=== PATIENT | male | born 1950 | race Caucasian/White ===

== ENCOUNTER 2020-08-26 11:15 | Emergency (ER) | payer MEDICARE, OTHER, SELFPAY ==
--- NOTE | ~2020-08-26 | XR_ITS ---
EXAMINATION: XR CHEST CLINICAL INFORMATION: Chest pain COMPARISON: February 17, 2018 TECHNIQUE: Frontal view of the chest was obtained. FINDINGS: There is no evidence of acute parenchymal disease, pneumothorax or pleural effusion. Heart normal size. No evidence of pulmonary edema. Endothoracic fat deposition seen bilaterally. XR/XR chest 1V IMPRESSION: No acute disease
[2020-08-26 11:21] VITALS: BP 170/77; PULSE 58; RESP 18; TEMP 37.1; O2SAT 97; BMI 39.1
--- NOTE | 2020-08-26 11:26 | ECG_ITS ---
Test Reason : CHEST PAIN Blood Pressure : / mmHG Vent. Rate : 050 BPM Atrial Rate : 050 BPM P-R Int : 166 ms QRS Dur : 092 ms QT Int : 450 ms P-R-T Axes : 039 058 072 degrees QTc Int : 410 ms Sinus bradycardia Otherwise normal ECG When compared with ECG of 28-JUN-2011 12:58, Premature ventricular complexes are no longer Present Vent. rate has decreased BY 56 BPM Nonspecific T wave abnormality no longer evident in Inferior leads Referred By: Generic ED Physician Electronically Signed By:RICHARD ESTEVES MD
[2020-08-26 13:33] LABS: MANUAL DIFF FLAG NO
[2020-08-26 13:35] LABS: Basophils Percent Auto 0.3 % (0-2); Eosinophils Absolute Auto 0.2 X10*3/uL (0.0-0.4); Hematocrit 42.4 % (42-52); Hemoglobin 14.9 g/dl (14.0-18.0); Imm Gran Abs Auto 0.03 X10*3/uL (0.00-0.03); Imm Gran Pct Auto 0.4 % (0.0-0.4); Lymphocytes Absolute Auto 2.2 X10*3/uL (1.2-4.9); Lymphocytes Percent Auto 29.6 % (20-40); Mean Corpuscular HGB Conc 35.1 g/dl (31.0-36.0); Mean Corpuscular Hemoglobin 30.9 pg (27.0-33.0); Mean Platelet Volume 9.3 fL (9.4-12.4); Monocytes Absolute Auto 0.5 X10*3/uL (0.1-1.2); Monocytes Percent Auto 6.9 % (2-11); Neutrophils Absolute Auto 4.5 X10*3/uL (2.0-8.3); Neutrophils Percent Auto 60.8 % (45-73); Platelet Count 188 X10*3/uL (160-400); Red Blood Count 4.82 X10*6/uL (4.60-5.80); Red Cell Distribution Width 12.9 % (11.0-16.0); White Blood Count 7.4 X10*3/uL (4.8-10.8)
[2020-08-26 14:10] LABS: Anion Gap 12 (12-20); Blood Urea Nitrogen 17 mg/dL (9-16); Calcium 9.5 mg/dL (8.4-10.2); Carbon Dioxide 29 mmol/L (22-29); Chloride 104 mmol/L (96-108); Creatinine Clr Calc Pharmacy 99.6; Estimated Glomerular Filt Rate > 60; Glucose Random 91 mg/dL (60-115); Potassium 3.7 mmol/L (3.3-5.1); Sodium 141 mmol/L (135-145)
[2020-08-26 14:15] LABS: Troponin-I High Sensitivity 5.2 ng/L (<3.5-35.0)
[2020-08-26 16:10] VITALS: BP 186/86; PULSE 55; RESP 20; O2SAT 98
--- NOTE | 2020-08-26 16:13 | ED_ITS ---
HPI - Chest Pain General Chief Complaint: Chest Pain Stated Complaint: chest pain Time Seen by Provider: 08/26/20 16:13 Source: patient Mode of arrival: ambulatory Limitations: no limitations History of Present Illness HPI narrative: Patient complaining of chest tightness and shortness of breath for last few weeks has increasing last 2 days no radiation of pain no nausea no vomiting no leg swelling. Patient did have same kind of pain 3 months ago seen primary care doctor started on Protonix got better not taking any medicine at this time has not seen any consulting group analyst. Patient had a stress test few 5 years ago which was negative patient does have history of sleep apnea and hypertension in taking his medication Related Data Previous Rx's Medication Instructions Recorded amoxicillin-pot clavulanate 1 tab PO BID #20 tab 08/26/20 [Augmentin] pantoprazole [Protonix] 40 mg PO DAILY #30 tab 08/26/20 Allergies Allergy/AdvReac Type Severity Reaction Status Date / Time cat dander [CAT] Allergy Unknown UNKNOWN Verified 08/26/20 11:20 dog dander [DOG] Allergy Unknown UNKNOWN Verified 08/26/20 11:20 Horse/Equine Containing Allergy Unknown RASH Verified 08/26/20 11:20 Products [HORSE/EQUINE PRODUCT DERIVATIVES] Review of Systems Review of Systems: Constitutional : No Weight loss, No Fever, No Chills ENT/Mouth : No sore throat, No Rhinorrhea Eyes: No Eye Pain, No Swelling Cardiovascular : + Chest Pain, no palpitations Respiratory : No Cough, No Sputum, ++ shortness of breath Gastrointestinal : no Nausea, No Vomiting, No Diarrhea, No abdominal Pain, no black stools Genitourinary : No Dysuria, No Urinary Frequency Musculoskeletal : No joint pain, No Myalgias, No Joint Swelling Skin : No Skin Lesions, No rash Neuro : No Weakness, No Numbness, No Dizziness, No Headache Psych : No Anxiety/Panic, No Depression Heme/Lymph: No Bruising, No Lymphadenopathy Endocrine : No Polyuria, No Polydipsia All other systems reviewed and are negative [facility] Past Medical History Medical History Bronchitis Hypertension Pneumonia Surgical History H/O knee surgery History of surgery of head Social History Social History Patient Tobacco Use Status: Current everyday Tobacco user Use of substances other than those prescribed or required for medical reasons: No Advance Directives: No Advance Directives Information Provided: No Physical Exam Vital Signs: Vital Signs: Last Vital Signs Temp 98.8 F 08/26/20 11:21 Pulse 55 08/26/20 16:10 Resp 20 08/26/20 16:10 BP 186/86 H 08/26/20 16:10 Pulse Ox 98 08/26/20 16:10 Body Mass Index 39.1 Appearance: Alert. Oriented X3. No acute distress. Eyes: PERRLA, No Nystagmus ENT: Pharynx normal. Oral Mucosa moist Neck: Normal inspection. Neck supple. CVS: Normal heart rate and rhythm. Pulses normal. Respiratory: No respiratory distress. Equal air entry bilateral, no wheezing/rales/rhonchi Abdomen: Soft and nontender. Bowel sounds are present, no mass palpable, no CVA tenderness Skin: Skin warm and dry. Normal skin color. Normal skin turgor. Extremities: No lower extremity edema. No calf tenderness Neuro: Oriented X 3. No motor deficit. No sensory deficit.No cerebellar signs , cranial nerves II-XII intact MDM - Chest Pain MDM Narrative Medical decision making narrative: patient with chest pain for more than 48 hours duration 2 sets of high sensitive troponin without any significant delta change patient has history of GERD and sleep apnea and had similar pain 3 months ago when he started on Protonix and got better patient advised take baby aspirin daily started on Protonix and follow with consulting group analyst / PCP within 1 month Lab Data Attestation: I reviewed the patient's lab results. Result diagrams: 08/26/20 13:28 08/26/20 13:28 Labs: Lab Results 08/26/20 08/26/20 08/26/20 Range/Units 13:28 13:28 13:28 WBC 7.4 (4.8-10.8) X10*3/uL RBC 4.82 (4.60-5.80) X10*6/uL Hgb 14.9 (14.0-18.0) g/dl Hct 42.4 (42-52) % MCV 88.0 (80-98) fL MCH 30.9 (27.0-33.0) pg MCHC 35.1 (31.0-36.0) g/dl RDW 12.9 (11.0-16.0) % Plt Count 188 (160-400) X10*3/uL MPV 9.3 L (9.4-12.4) fL Immature Gran % (Auto) 0.4 (0.0-0.4) % Neut % (Auto) 60.8 (45-73) % Lymph % (Auto) 29.6 (20-40) % [place] % (Auto) 6.9 (2-11) % Eos % (Auto) 2.0 (0-4) % Baso % (Auto) 0.3 (0-2) % Lymph # (Auto) 2.2 (1.2-4.9) X10*3/uL [place] # (Auto) 0.5 (0.1-1.2) X10*3/uL Eos # (Auto) 0.2 (0.0-0.4) X10*3/uL Baso # (Auto) 0.0 (0.0-0.2) X10*3/uL Abs Immat Gran (auto) 0.03 (0.00-0.03) X10*3/uL Absolute Neuts (auto) 4.5 (2.0-8.3) X10*3/uL Absolute Nucleated RBC 0.000 (0.0-0.012) X10*3/uL Nucleated RBC % (auto) 0.0 (0.0-0.2) /100WBC D-Dimer NG/ML Sodium 141 (135-145) mmol/L Potassium 3.7 (3.3-5.1) mmol/L Chloride 104 (96-108) mmol/L Carbon Dioxide 29 (22-29) mmol/L Anion Gap 12 (12-20) BUN 17 H (9-16) mg/dL Creatinine 0.87 (0.5-1.4) mg/dL Estim Creat Clear Calc 99.6 Estimated GFR > 60 Random Glucose 91 (60-115) mg/dL Calcium 9.5 (8.4-10.2) mg/dL Troponin I High Sens 5.2 (<3.5-35.0) ng/L B-Natriuretic Peptide 55 (<100) pg/mL 08/26/20 08/26/20 Range/Units 16:45 16:45 WBC (4.8-10.8) X10*3/uL RBC (4.60-5.80) X10*6/uL Hgb (14.0-18.0) g/dl Hct (42-52) % MCV (80-98) fL MCH (27.0-33.0) pg MCHC (31.0-36.0) g/dl RDW (11.0-16.0) % Plt Count (160-400) X10*3/uL MPV (9.4-12.4) fL Immature Gran % (Auto) (0.0-0.4) % Neut % (Auto) (45-73) % Lymph % (Auto) (20-40) % [place] % (Auto) (2-11) % Eos % (Auto) (0-4) % Baso % (Auto) (0-2) % Lymph # (Auto) (1.2-4.9) X10*3/uL [place] # (Auto) (0.1-1.2) X10*3/uL Eos # (Auto) (0.0-0.4) X10*3/uL Baso # (Auto) (0.0-0.2) X10*3/uL Abs Immat Gran (auto) (0.00-0.03) X10*3/uL Absolute Neuts (auto) (2.0-8.3) X10*3/uL Absolute Nucleated RBC (0.0-0.012) X10*3/uL Nucleated RBC % (auto) (0.0-0.2) /100WBC D-Dimer < 200 NG/ML Sodium (135-145) mmol/L Potassium (3.3-5.1) mmol/L Chloride (96-108) mmol/L Carbon Dioxide (22-29) mmol/L Anion Gap (12-20) BUN (9-16) mg/dL Creatinine (0.5-1.4) mg/dL Estim Creat Clear Calc Estimated GFR Random Glucose (60-115) mg/dL Calcium (8.4-10.2) mg/dL Troponin I High Sens 4.9 (<3.5-35.0) ng/L B-Natriuretic Peptide (<100) pg/mL ECG Data ECG #1: Attestation: I personally reviewed and interpreted this ECG as follows: Interpretation: sinus bradycardia with heart rate 50 beats per minute normal intervals normal axis no acute ST T wave changes no acute ischemia Discharge Plan Discharge Clinical Impression: Chronic GERD Chest pain Qualifiers: Chest pain type: precordial pain Qualified Code(s): R07.2 - Precordial pain Chronic bronchitis Qualifiers: Chronic bronchitis type: mucopurulent Qualified Code(s): J41.1 - Mucopurulent chronic bronchitis Patient Disposition: Home, Self-Care Instructions: Chest Pain (ED), Chronic Bronchitis (ED), Gastroesophageal Reflux Disease (ED) Additional Instructions: take antibiotics for chronic bronchitis. Start taking Protonix for acid reflux. Follow-up with your PCP /consulting group analyst for further evaluation including stress test for chest pain. Report to the ER if recurrence of chest pain Take baby aspirin daily Prescriptions: New pantoprazole [Protonix] 40 mg tablet,delayed release (DR/EC) 40 mg PO DAILY Qty: 30 RF: 0 amoxicillin-pot clavulanate [Augmentin] 875-125 mg tablet 1 tab PO BID Qty: 20 RF: 0
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
[2020-08-26 16:56] LABS: B Type Natriuretic Peptide 55 pg/mL (<100)
[2020-08-26] MEDS: Aspirin Enteric Coated 81 MG TABLET.DR 162 MG PO (16:56)
[2020-08-26 17:24] LABS: D Dimer < 200 NG/ML
[2020-08-26 17:33] LABS: Troponin-I High Sensitivity 4.9 ng/L (<3.5-35.0)
[2020-08-26] MEDS: Amoxicillin/Potassium Clav 875 MG TABLET PO (18:51)
[2020-08-26 18:57] VITALS: BP 185/80; PULSE 55; RESP 16; O2SAT 99
== END 2020-08-26 19:07 | disposition home or self-care (01) ==
PROVIDERS: Emergency Provider Internal Medicine; PCP Internal Medicine
DX: J41.1 Mucopurulent chronic bronchitis (principal); K21.9 Gastro-esophageal reflux disease without esophagitis; R07.2 Precordial pain; R06.02 Shortness of breath; I10 Essential (primary) hypertension
CPT/HCPCS: 36415; 71045; 80048; 83880; 84484; 85025; 85379; 93005; 99285

== ENCOUNTER 2020-12-26 13:52 | Emergency (ER) | payer MEDICARE, OTHER, SELFPAY ==
--- NOTE | 2020-12-26 | ECG_ITS ---
Test Reason : NEURO SYMPTOMS Blood Pressure : / mmHG Vent. Rate : 066 BPM Atrial Rate : 066 BPM P-R Int : 156 ms QRS Dur : 096 ms QT Int : 398 ms P-R-T Axes : 069 058 054 degrees QTc Int : 417 ms Normal sinus rhythm Normal ECG Heart rate has increased Referred By: Generic ED Physician Electronically Signed By:MANISH DEXTER MD
[2020-12-26 13:54] VITALS: PULSE 73; RESP 18; TEMP 36.8; O2SAT 97; BMI 36.9
--- NOTE | 2020-12-26 15:12 | ED.NEUROSD ---
HPI - Neuro Symptoms/Deficit General Chief Complaint: Neuro Symptoms/Deficit Stated Complaint: facial droop & numbness of the lt side Time Seen by Provider: 12/26/20 14:43 Source: patient Mode of arrival: ambulatory Limitations: no limitations History of Present Illness HPI Narrative: Patient comes emergency room complaining of droopy mouth and droopy eyelid/facial paralysis for 2 days. Patient denies any numbness tingling or loss of strength in upper lower extremities. Patient states that 4 weeks ago patient had his COVID booster shot, a week later he developed URI symptoms. He has been having a viral syndrome for the last 3 to patient denies fever chills. Related Data Previous Rx's Medication Instructions Recorded amoxicillin 875 mg-potassium 1 tab PO BID #20 tab 08/26/20 clavulanate 125 mg tablet (Augmentin) pantoprazole 40 mg tablet,delayed 40 mg PO DAILY #30 tab 08/26/20 release (Protonix) prednisone 10 mg tablet 10 mg PO DAILY #50 tab 12/26/20 valacyclovir 1 gram tablet 1,000 mg PO TID 7 Days #21 tab 12/26/20 Allergies Allergy/AdvReac Type Severity Reaction Status Date / Time cat dander [CAT] Allergy Unknown UNKNOWN Verified 12/26/20 13:53 dog dander [DOG] Allergy Unknown UNKNOWN Verified 12/26/20 13:53 Horse/Equine Containing Allergy Unknown RASH Verified 12/26/20 13:53 Products [HORSE/EQUINE PRODUCT DERIVATIVES] Review of Systems Review of Systems: Constitutional : No Weight loss, No Fever, No Chills, No Night Sweats, No Fatigue, No Malaise ENT/Mouth : No Hearing loss, No Ear Pain, No Nasal Congestion, No Sinus Pain, No Hoarseness, No sore throat, No Rhinorrhea, No Swallowing Difficulty Eyes: No Eye Pain, No Swelling, No Redness, No Foreign Body, No Discharge, No Vision Changes Cardiovascular : No Chest Pain, No SOB, No Dyspnea on Exertion, No Orthopnea, No Edema, No Palpitations Respiratory : No Cough, No Sputum, No Wheezing, No Smoke Exposure, No Dyspnea Gastrointestinal : No Nausea, No Vomiting, No Diarrhea, No Constipation, No abdominal Pain, No Hematochezia, No Melena Genitourinary : no irregular bleeding, No Dysuria, No Urinary Frequency, No Hematuria, No Urinary Incontinence, No Urgency, No Flank Pain, No Urinary Flow Changes, No Hesitancy Musculoskeletal : No joint pain, No Myalgias, No Joint Swelling Skin : No Skin Lesions, No rash Neuro : No Weakness, No Numbness, No Paresthesias, No Loss of Consciousness, No Dizziness, No Headache, unable to raise the eyebrow, unable to fully close left eye, complaining of tripping mouth on the left Psych : No Anxiety/Panic, No Depression, No SI/HI/AH/VH, No Social Issues, Heme/Lymph: No Bruising, No Bleeding,No Lymphadenopathy Endocrine : No Polyuria, No Polydipsia, No Temperature Intolerance PMFSH Past Medical History Medical History Bronchitis Hypertension Pneumonia Surgical History H/O knee surgery History of surgery of head Social History Social History Patient Tobacco Use Status: Current everyday Tobacco user Advance Directives: No Physical Exam Vital Signs: Vital Signs: Last Vital Signs Temp 98.3 F 12/26/20 13:54 Pulse 73 12/26/20 13:54 Resp 18 12/26/20 13:54 Pulse Ox 97 12/26/20 13:54 Body Mass Index 36.9 Const: Other: Appearance: Alert. Oriented X3. No acute distress. Eyes: Pupils equal, round and reactive to light. Patient unable to fully close his left eyelid ENT: Pharynx normal. Mouth droop on the left side of the lips, unable to puff cheeks, unable to raise left eyebrow Neck: Normal inspection. Neck supple. No lymph nodes noted. No crepitus, chronic 4 cm x 4 cm lump on the base of the right side of the neck above the clavicle CVS: Normal heart rate and rhythm. Pulses normal. Normal S1 and S2 Respiratory: No respiratory distress. Breath sounds normal. No Wheezing. No rales Abdomen: Soft and nontender. No rigidity. No distention. good BS x4 Skin: Skin warm and dry. Normal skin color. Normal skin turgor. Extremities: No lower extremity edema. No lower extremity edema. No Lacerations. No Rash Neuro: Oriented X 3. No motor deficit. No sensory deficit. Moving all extermities. No slurred speech. 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 Patient was given the 1st dose of valacyclovir and prednisone in the emergency room. I discussed with the patient that eventuality he may need physical therapy to regain the muscle strength in his face. Patient will follow-up with his PCP. 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 If you have any worsening or new symptoms, please return to the emergency room or call 911 Prescriptions: New valacyclovir 1 gram tablet 1,000 mg PO TID 7 Days Qty: 21 RF: 0 prednisone 10 mg tablet 10 mg PO DAILY Qty: 50 RF: 0 No Action pantoprazole [Protonix] 40 mg tablet,delayed release (DR/EC) 40 mg PO DAILY Qty: 30 RF: 0 amoxicillin-pot clavulanate [Augmentin] 875-125 mg tablet 1 tab PO BID Qty: 20 RF: 0
[2020-12-26] MEDS: predniSONE 20 MG TABLET 60 MG PO (15:34)
== END 2020-12-26 15:37 | disposition home or self-care (01) ==
PROVIDERS: Emergency Provider Emergency Medicine; PCP Internal Medicine
DX: G51.0 Bell's palsy (principal); I10 Essential (primary) hypertension
CPT/HCPCS: 93005; 99283

== ENCOUNTER 2022-03-19 10:46 | Outpatient (REF) | payer MEDICARE, OTHER, SELFPAY ==
--- NOTE | 2022-03-19 | PFT_ITS ---
Forced vital capacity is 59%, FEV1 of 61%, FEV1/FVC ratio is 76. [id number] of 66% and MVV is 46%. Bronchodilator challenge, no response was noted. Total lung capacity 71%. Residual volume 96%. Diffusion capacity 64%. CONCLUSION: Mild restrictive pulmonary disorder. No significant obstructive airway disorder was noted. No response to bronchodilator therapy. Clinical correlation is recommended. MD RAMANDEEP Richards/MODL / [id number]
== END 2022-03-19 10:47 | disposition home or self-care (01) ==
LOC: HO.RESP 10:46
PROVIDERS: PCP Internal Medicine; Visit Provider Internal Medicine
DX: R06.09 Other forms of dyspnea (principal)
CPT/HCPCS: 94060; 94727; 94729

== ENCOUNTER → 2022-04-09 10:50 | Outpatient (BNVA) | payer MEDICARE, OTHER, SELFPAY | PROVIDERS: PCP Internal Medicine; Visit Provider Internal Medicine Pulmonary Disease | DX: Z01.811 Encounter for preprocedural respiratory examination (principal); R94.2 Abnormal results of pulmonary function studies; R06.09 Other forms of dyspnea; G47.33 Obstructive sleep apnea (adult) (pediatric) | CPT/HCPCS: 99202 ==

== ENCOUNTER → 2022-07-02 10:42 | Outpatient (REF) | payer MEDICARE, OTHER, SELFPAY ==
--- NOTE | ~2022-07-02 | CT_ITS ---
EXAMINATION: CT CHEST WITHOUT CONTRAST CLINICAL INFORMATION: Abnormal result of pulmonary function tests. COMPARISON: Chest CT 03/18/2009. TECHNIQUE: Multidetector volumetric CT imaging of the chest was done. Axial MIP volume rendering provided. Sagittal and coronal reformatted images were obtained. This CT examination was performed using dose optimization techniques as appropriate, variously including the following: *Automated exposure control *Adjustment of mA and/or kV according to patient size (this includes techniques or standardized protocols for targeted exams where dose is matched to indication/reason for exam; i.e. extremities or head) *Use of iterative reconstruction technique DLP: 409 mGy-cm FINDINGS: LUNGS: Mild bronchial wall thickening consistent with chronic airways disease. No tree-in-bud airspace disease or groundglass disease to suggest acute abnormality. Minor subsegmental atelectasis or scarring in the left lower lobe. Scattered pulmonary micronodules one of which is calcified consistent with a granuloma and a few are juxtapleural consistent with parenchymal lymph nodes. MEDIASTINUM: 1.9 cm inferior left thyroid nodule is new from the prior thyroid ultrasound. No mediastinal adenopathy. No aortic aneurysm. No pericardial effusion. The main pulmonary artery is dilated measuring 3.6 cm. CORONARY ARTERY CALCIFICATION: Present. Minimal RCA and LAD calcium. PLEURA: There is no pleural effusion. No pleural mass or thickening. AXILLA: No lymphadenopathy. UPPER ABDOMEN: Fatty liver. Small lipid rich adenoma versus myelolipoma in the left adrenal gland. No follow-up imaging is recommended. OSSEOUS STRUCTURES: Degenerative changes in the spine. CT/CT chest wo IV con IMPRESSION: Minimal LAD and RCA coronary calcium. Bronchial wall thickening consistent with chronic airways disease. No emphysema or evidence of interstitial lung disease. Tiny scattered pulmonary micronodules as above are consistent with benign granulomas and parenchymal lymph nodes. Newly apparent 1.9 cm nodule in the inferior left thyroid. Based on the recommendations of the ACR Incidental Thyroid Findings Committee (JACR 2015 Apr; 12(2):143-50), further evaluation by thyroid ultrasound is recommended for solitary incidental thyroid nodules greater than or equal to 1.5 cm in largest axial dimension in patients age 35 years and older who do not have limited life expectancy or significant morbidities, unless clinically warranted. Fatty liver. Fleischner guidelines were followed.
--- NOTE | 2022-07-02 10:44 | CA_ITS ---
Transthoracic Echocardiogram Patient (Last, First, Middle): Duane Sims A Gender: Male Date of : 1950 Age: 72 Procedure Date: 07/02/2022 Procedure Type: Transthoracic Echocardiogram Location: OP Height: 175.26 cm Weight: 122.47 kg BSA: 2.35 m2 Heart Rate: bpm BP: 140 / 78 mmHg Social Work Associate: FRANKI Referring MD: Kai Prasad MD Sound Effects Person: Constantino Curran MD Symptoms: R06.09 - Other forms of dyspnea Study Quality: Fair ECG Rhythm: Sinus Conclusions: - 1. Normal LV systolic function with moderate LVH with impaired relaxation filling pattern 2. Normal cardiac valvular Doppler 3. Normal measured RV systolic pressure 4. No gross pericardial effusion Findings Procedure Information Contrast agent, definity, is being given per protocol without apparent complications. Left Ventricle Normal left ventricular size and systolic function. There is moderately increased left ventricular wall thickness. The visually estimated ejection fraction is between 55-60%. Spectral Doppler is indicative of an impaired relaxation filling pattern. E/E prime ratio is <8, consistent with normal filling pressures. Evidence suggests grade I (mild) diastolic dysfunction. Right Ventricle The right ventricle was not well visualized. There is normal right ventricular systolic function. Atria The left atrium was not well visualized. Interatrial shunt cannot be excluded. The right atrium was not well visualized. Aortic Valve The aortic valve was not well visualized. There is no aortic valve stenosis. There is no aortic valve regurgitation. Mitral Valve The mitral valve was not well visualized. There is trace mitral valve regurgitation. There is no mitral valve stenosis. Pulmonic Valve The pulmonic valve was not well visualized. Tricuspid Valve The tricuspid valve was not well visualized. There is trace tricuspid valve regurgitation. The right ventricular systolic pressure is normal. The right ventricular systolic pressure is 11 mmHg. There is no evidence of pulmonary hypertension. Great Vessels All visible segments of the aorta are normal in size. The pulmonary artery was not well visualized. Venous The inferior vena cava is normal in size and collapses greater than 50% with inspiration. Pericardium/Pleural There is no evidence of pericardial effusion. Prior Study Comparison no previous study in the last 5 years for comparison Measurements 2D Linear Measurements IVSd: 1.46 0.6-0.9/0.6-1.0 cm LVIDd: 4.91 3.9-5.3/4.2-5.9 cm LVIDd Index: 2.09 2.4-3.2/2.2-3.1 cm/m2 LVIDs: 3.31 2.0-3.6 cm LVPWd: 1.42 0.7-1.1 cm LA Diam: 4.60 2.7-3.8/3.0-4.0 cm LAIDs Index: 1.96 1.5-2.3 cm/m2 LV Mass: 368.53 67-162/88-224 g LV Mass Index: 156.82 43-95/49-115 g/m2 LVOT Diam: 2.00 3.0+(-)1.3 cm 2D Systolic Function EF 4C: 55.50 >55% EF 2C: 58.50 >55% EF BiP: 58.00 >55% Mitral Valve MV Pk E: 0.59 MV PK A: 0.70 MV Decel Time: 202.00 E/A: 0.80 E'Lateral: 4.46 E'Medial: 4.24 E/E' Med: 13.80 E/E' Lat: 13.10 PHT: 59.00 MVA PHT: 3.73 Decel [place]: 2.89 Aortic Valve AoV Pk Jovanny: 1.47 AoV Mn Jovanny: 0.94 AoV VTI: 0.27 AoV Pk Grad: 9.00 Aov Mn Grad: 4.00 RIZWAN Cont.VTI: 3.12 LVOT LVOT Pk Jovanny: 1.29 LVOT Mn Jovanny: 0.94 LVOT VTI: 0.27 LVOT Pk Grad: 7.00 LVOT Mn Grad: 4.00 LVOT Diam: 2.00 LVOT Area: 3.14 Diastolic Function MV Pk E: 0.59 MV Pk A: 0.70 E/A: 0.80 E'Medial: 4.24 E/E' Med: 13.80 E' Laterial: 4.46 E/E' Lat: 13.10 Right Ventricle TAPSE (mm): 19.40 TVS' Jovanny: 15.20 Tricuspid Valve TR Pk Jovanny: 1.41 TR Pk Grad: 8.00 RA Press: 3.00 RVSP: 11.00 Great Vessels Aorta Sinus of Valsalva: 3.43 2.0-3.[address] [place]: 2.65 1.7-3.4 cm Ao Asc: 3.50 2.1-3.4 cm Updated in Other Vendor System with Status of Final Constantino Curran MD electronically signed on 07/03/2022 2:30:59 PM with status of Final
== END ==
LOC: HO.CARD 10:42
PROVIDERS: PCP Internal Medicine; Visit Provider Internal Medicine Pulmonary Disease
DX: R06.09 Other forms of dyspnea (principal); R94.2 Abnormal results of pulmonary function studies
CPT/HCPCS: 71250; 93306; Q9957

== ENCOUNTER 2023-06-11 08:58 | Outpatient (AMB) | payer MEDICARE, OTHER, SELFPAY ==
--- NOTE | 2023-06-11 09:01 | MHC.OFFWIV ---
Intake Vital Signs 06/11/23 09:02 Height 5 ft 9 in Weight 270 lb BMI 39.9 BP 160/84 H Blood Pressure Location Lt brachial Position Sitting Pulse 69 Pulse Source Pulse Oximeter Temp 97.7 F Temp Source Temporal Artery Scan Pulse Oximetry (%) 97 Oxygen Delivery Method Room Air Intake Visit Reasons: EP pain in ribs/chest (lobby) Intake Note: pt is here today for pain in ribs started 2 months ago Patient Tobacco Use Status: Current everyday Tobacco user Allergies cat dander [CAT] Allergy (Unknown, Verified 06/11/23 09:05) UNKNOWN dog dander [DOG] Allergy (Unknown, Verified 06/11/23 09:05) UNKNOWN Horse/Equine Containing Products [HORSE/EQUINE PRODUCT DERIVATIVES] Allergy (Unknown, Verified 06/11/23 09:05) RASH Do you need a note to return to daycare/school/sports/work: No HPI HPI Comments History of Present Illness Details 72-year-old male complaining of by lateral chest wall pain from his axilla to his waistline. He states the pain increases with motion and also coughing. He denies central chest pain fever chills no GI complaints has a mild cough. [facility] Medical History Bronchitis Hypertension Pneumonia Surgical History H/O knee surgery History of surgery of head Social History (Updated 04/09/22 @ 11:21 by MAYRA Grey) Patient Tobacco Use Status: Current everyday Tobacco user Tobacco use type: Cigarette Years Smoked: 55 Years Review of Systems Const All systems reviewed & are unremarkable except as noted in HPI and below Eyes Reports no additional complaints ENT Reports no additional complaints Card Reports no additional complaints Resp Reports cough (Mild), Reports pain on inspiration and Reports pain with cough GI Reports no additional complaints Reports no additional complaints Musc Details: The patient has chest wall pain but not reproducible with palpation Skin/Breast Details: No rash Physical Exam Const General: acute distress moderate HEENT Head: Yes normal to inspection, Yes normocephalic and Yes atraumatic Ears: hearing grossly normal bilaterally, TM's normal bilaterally and EAC's normal General nose exam: Normal external nose present Face and sinus: Yes normal facial exam Eyes General: appearance normal, both eyes and all related structures Resp Effort & Inspection: normal respiratory effort and able to speak in complete sentences Auscultation: wheezes expiratory wheezes and inspiratory wheezes Cardio Rate: regular rate Rhythm: regular rhythm Heart sounds: S1 normal heart sound present and S2 normal heart sound present Skin General skin exam: no rashes or lesions noted Assessment & Plan Assessment & Plan (1) Pleuritic chest pain: Code(s): R07.81 - Pleurodynia Plan: The patient is put on prednisone and a muscle relaxer for his chest wall pain. He will follow up with his PCP. Plan See plan Orders: Orders XR chest 2V Today R07.81 - Pleurodynia Medications: New cyclobenzaprine 5 mg PO Q12H 10 tabs 0RF prednisone prednisone 5 mg: take 8 tablets (40 mg) on Day 1; 7 tablets (35 mg) on Day 2; then decrease by 1 tablet every day until finished PO 21 ea 0RF Coding Level of Care Code Est Pt Level 3 (57334) Diagnoses Pleuritic chest pain R07.81
[2023-06-11 09:02] VITALS: BP 160/84; PULSE 69; TEMP 36.5; O2SAT 97; BMI 39.9
== END 2023-06-11 14:08 | disposition home or self-care (01) ==
PROVIDERS: PCP Internal Medicine; Visit Provider Physician Assistant Medical
DX: R07.81 Pleurodynia (principal)
CPT/HCPCS: 99213

== ENCOUNTER 2023-06-11 09:14 | Outpatient (REF) | payer MEDICARE, OTHER, SELFPAY ==
--- NOTE | ~2023-06-11 | XR_ITS ---
EXAMINATION: XR CHEST CLINICAL INFORMATION: Pleura tiny COMPARISON: Previous chest x-ray from [address] from 2022 TECHNIQUE: 2 views of the chest were obtained. FINDINGS: The cardiac and mediastinal contours are stable. The lungs are clear. No pleural effusion or pneumothorax. Degenerative changes of the spine. XR/XR chest 2V IMPRESSION: No evidence for acute disease in the chest.
== END 2023-06-11 09:15 | disposition home or self-care (01) ==
LOC: HO.HMGCX 09:14
PROVIDERS: PCP Internal Medicine; Visit Provider Physician Assistant Medical
DX: R07.81 Pleurodynia (principal)
CPT/HCPCS: 71046